=== PATIENT | male | born 1965 | race Asian ===

== ENCOUNTER 2016-09-24 15:20 | Emergency (ER) | payer MEDICARE, OTHER ==
[2016-09-24] MEDS ORDERED: ONDANSETRON 4 MG/2 ML VIAL IVP STA (16:08)
[2016-09-24] MEDS ORDERED: SODIUM CHLORIDE 0.9% 1,000 ML IV ONE ×2 (16:08→16:09)
[2016-09-24] MEDS ORDERED: ONDANSETRON 4 MG/2 ML VIAL ONE (16:14)
[2016-09-24] MEDS ORDERED: cefTRIAXone 1 GM in SODIUM CHLORIDE 0.9% MINIBAG 100 ML IV STA (17:58)
[2016-09-24] MEDS ORDERED: cefTRIAXone 1 GM VIAL ONE (18:01)
== END 2016-09-24 19:25 | disposition home or self-care (01) ==
DX: I95.9 Hypotension, unspecified (principal); E86.0 Dehydration; J06.9 Acute upper respiratory infection, unspecified; T83.511A Infection and inflammatory reaction due to indwelling urethral catheter, initial encounter; Y84.6 Urinary catheterization as the cause of abnormal reaction of the patient, or of later complication, without mention of misadventure at the time of the procedure; G82.20 Paraplegia, unspecified; S14.106S Unspecified injury at C6 level of cervical spinal cord, sequela; X58.XXXS Exposure to other specified factors, sequela

== ENCOUNTER 2016-10-07 12:17 | Inpatient (IN) | payer MEDICARE, OTHER ==
[2016-10-07] MEDS ORDERED: SODIUM CHLORIDE 0.9% 1,000 ML IV ONE ×2 (14:10→18:12)
[2016-10-07] MEDS ORDERED: ONDANSETRON 4 MG/2 ML VIAL IVP STA (14:56)
[2016-10-07] MEDS ORDERED: ONDANSETRON 4 MG/2 ML VIAL ONE (14:59)
[2016-10-07] MEDS ORDERED: IOPAMIDOL-300 100 ML VIAL IVP ONE (15:32)
[2016-10-07] MEDS ORDERED: MORPHINE 2 MG/ML SYRINGE IVP STA (16:21)
[2016-10-07] MEDS ORDERED: NITROGLYCERIN 2% PASTE TOP ONE (17:31)
[2016-10-07] MEDS ORDERED: MIDAZOLAM 2 MG/2 ML VIAL IVP ONE (18:00)
[2016-10-07] MEDS ORDERED: ESMOLOL 100 MG/10 ML VIAL IVP ONE (18:00)
[2016-10-07] MEDS ORDERED: PROPOFOL 200 MG/20 ML VIAL IVP ONE (18:00)
[2016-10-07] MEDS ORDERED: fentaNYL 100 MCG/2 ML VIAL IVP ONE (18:00)
[2016-10-07] MEDS ORDERED: hydrALAZINE INJ 20 MG/ML VIAL IVP ONE (18:00)
[2016-10-07] MEDS ORDERED: ePHEDrine 50 MG/ML AMP IVP ONE (18:00)
[2016-10-07] MEDS ORDERED: PROMETHAZINE 25 MG/1 ML VIAL ONE (19:05)
[2016-10-07] MEDS ORDERED: LACTATED RINGERS 1,000 ML IV ONE (19:10)
[2016-10-07] MEDS ORDERED: SODIUM CHLORIDE FLUSH 0.9% 10 ML SYRINGE IVP PRN (20:33)
[2016-10-07] MEDS ORDERED: PROCHLORPERAZINE 10 MG/2 ML VIAL IVP PRN (20:38)
[2016-10-07] MEDS ORDERED: ONDANSETRON 4 MG/2 ML VIAL IVP PRN (20:38)
[2016-10-07] MEDS ORDERED: LORazepam 2 MG/ML SYRINGE IVP PRN (20:38)
[2016-10-07] MEDS: LACTATED RINGERS 1,000 ML IV SCH (21:49)
[2016-10-07] MEDS: POTASSIUM CHLOR 10 MEQ/100 ML 100 ML IV SCH ×2 (21:49→22:45)
[2016-10-07] MEDS: FAMOTIDINE 20 MG/50 ML 50 ML IV SCH (21:49)
[2016-10-07] MEDS: SODIUM CHLORIDE FLUSH 0.9% 10 ML SYRINGE IVP SCH (21:52)
[2016-10-07] MEDS ORDERED: CIPROFLOXACIN 400 MG/200 ML 200 ML IV SCH (23:00)
[2016-10-08] MEDS: POTASSIUM CHLOR 10 MEQ/100 ML 100 ML IV SCH ×2 (00:13→01:19)
[2016-10-08] MEDS: ACETAMINOPHEN 1,000 MG/100 ML 100 ML IV PRN ×2 (00:15→11:27)
[2016-10-08] MEDS: SODIUM CHLORIDE FLUSH 0.9% 10 ML SYRINGE IVP SCH (06:01)
[2016-10-08] MEDS: FAMOTIDINE 20 MG/50 ML 50 ML IV SCH (08:54)
[2016-10-08] MEDS ORDERED: ENOXAPARIN 40 MG/0.4 ML SYRINGE SUBQ SCH (09:00)
[2016-10-08] MEDS: LACTATED RINGERS 1,000 ML IV SCH (09:33)
[2016-10-08] MEDS ORDERED: NITROGLYCERIN 2% PASTE TOP SCH (12:00)
== END 2016-10-08 14:42 | disposition home or self-care (01) | DRG 344 ==
DX: K56.2 Volvulus (principal); K56.60 Unspecified intestinal obstruction; S14.106S Unspecified injury at C6 level of cervical spinal cord, sequela; G82.50 Quadriplegia, unspecified; S14.105S Unspecified injury at C5 level of cervical spinal cord, sequela; G90.4 Autonomic dysreflexia; L98.9 Disorder of the skin and subcutaneous tissue, unspecified; Z96.0 Presence of urogenital implants; Z98.1 Arthrodesis status; Z87.440 Personal history of urinary (tract) infections

== ENCOUNTER 2017-06-11 10:55 | Emergency (ER) | payer MEDICARE, OTHER ==
[2017-06-11 11:35] LABS: BILIRUBIN,URINE NEGATIVE (NEGATIVE); PH,URINE 7.5 PH (5.0-7.5); UA w/ MICROSCOPIC CHARGE YES
[2017-06-11 11:40] LABS: UR CULTURE IF IND INDICATED; WBC,URINE >25 /HPF (0-3)
[2017-06-11] MEDS ORDERED: SODIUM CHLORIDE 0.9% 1,000 ML IV ONE (12:20)
--- NOTE | 2017-06-11 12:25 | ED Physician Documentation ---
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 He has an indwelling Cazares catheter and recurrent UTIs. Currently on nitrofurantoin prophylaxis. For the last 5 days has been feeling generally ill, achy, chills. No obvious source, no respiratory symptoms. No pain. This is similar to prior UTIs, culture, most recently from September of this year reviewed, showed E. coli, enterococcus, and Pseudomonas. All sensitive to fluoroquinolones which he says have been useful in for him in the past.) Review of Systems Ten Systems: 10 systems reviewed and negative Constitutional: reports: Fever, Chills, Myalgias, Fatigue, Sweats Respiratory: denies: Dyspnea, Cough GI: denies: Abdominal Pain, Vomiting, Diarrhea PD PAST MEDICAL HISTORY - Past Medical History Past Medical History: Yes Cardiovascular: None Respiratory: None Neuro: Other : Indwelling catheter Musculoskeletal: Quadriplegia - Past Surgical History Past Surgical History: Yes - Present Medications Home Medications: Ambulatory Orders Medication Instructions Recorded Confirmed Ciprofloxacin HCl [Cipro] 500 mg PO BID #20 tablet 06/11/17 Fexofenadine HCl [Huong Allergy] 60 mg PO DAILY 06/11/17 06/11/17 Nitrofurantoin Monohyd/M-Cryst 100 mg PO BID 06/11/17 06/11/17 [Macrobid 100 mg Capsule] - Allergies Allergies/Adverse Reactions: Allergies Allergy/AdvReac Type Severity Reaction Status Date / Time Sulfa (Sulfonamide Allergy Intermediate Respiratory Verified 10/07/16 12:36 Antibiotics) - Social History Does the pt smoke?: No Smoking Status: Never smoker Does the pt drink ETOH?: Yes Does the pt have substance abuse?: No - Family History Family history: reports: Non contributory - Immunizations Immunizations are current?: Yes - POLST Patient has POLST: Yes POLST Status: no life support PD ED PE NORMAL - Vitals Vital signs reviewed: Yes - General General: Alert and oriented X 3, No acute distress, Other (Appears mildly ill, in a wheelchair.) - HEENT HEENT: PERRL, EOMI - Neck Neck: Supple, no meningeal sign, No bony TTP - Cardiac Cardiac: RRR, No murmur - Respiratory Respiratory: No respiratory distress, Clear bilaterally - Abdomen Abdomen: Soft, Non tender - Extremities Extremities: No edema - Neuro Neuro: Alert and oriented X 3, Normal speech - Psych Psych: Normal mood, Normal affect Results - Vitals Vitals: Vital Signs - 24 hr 06/11/17 06/11/17 06/11/17 11:07 11:18 12:43 Temperature 37.5 C 37.4 C Heart Rate 78 82 Respiratory 19 15 Rate Blood Pressure 105/75 125/78 O2 Saturation 98 98 Oxygen O2 Source Room air - Labs Labs: Laboratory Tests 06/11/17 06/11/17 06/11/17 11:23 12:34 12:34 WBC 11.4 H RBC 3.87 L Hgb 11.7 L Hct 35.4 L MCV 91.7 MCH 30.4 MCHC 33.1 RDW 13.3 Plt Count 225 MPV 6.4 L Neut # 9.9 H Lymph # 0.6 L [place] # 0.8 Eos # 0.0 Baso # 0.0 Absolute Nucleated RBC 0.00 Nucleated RBC % 0.0 Sodium 133 L Potassium 3.6 Chloride 99 L Carbon Dioxide 23 Anion Gap 11.0 BUN 10 Creatinine 0.3 L Estimated GFR (MDRD) 314 Glucose 99 Lactic Acid Calcium 9.1 Urine Color YELLOW Urine Clarity SL. CLOUDY Urine pH 7.5 Ur Specific [place] 1.020 Urine Protein TRACE Urine Glucose (UA) NEGATIVE Urine Ketones 15 H Urine Occult Blood LARGE H Urine Nitrite POSITIVE H Urine Bilirubin NEGATIVE Urine Urobilinogen 0.2 (NORMAL) Ur Leukocyte Esterase SMALL H Urine RBC TNTC H Urine WBC >25 H Ur Squamous Epith Cells RARE Squamous Amorphous Sediment Few Urine Bacteria Moderate H Ur Microscopic Review INDICATED Urine Culture Comments INDICATED 06/11/17 12:34 WBC RBC Hgb Hct MCV MCH MCHC RDW Plt Count MPV Neut # Lymph # Owen # Eos # Baso # Absolute Nucleated RBC Nucleated RBC % Sodium Potassium Chloride Carbon Dioxide Anion Gap BUN Creatinine Estimated GFR (MDRD) Glucose Lactic Acid 0.7 Calcium Urine Color Urine Clarity Urine pH Ur Specific [place] Urine Protein Urine Glucose (UA) Urine Ketones Urine Occult Blood Urine Nitrite Urine Bilirubin Urine Urobilinogen Ur Leukocyte Esterase Urine RBC Urine WBC Ur Squamous Epith Cells Amorphous Sediment Urine Bacteria Ur Microscopic Review Urine Culture Comments PD MEDICAL DECISION MAKING - ED course ED course: 51-year-old gentleman with systemic symptoms from a UTI. His labs are reassuring with a normal lactate and only minimally elevated white blood cell count. He very much wanted to go home and he was administered IV fluids and Cipro here. Departure - Departure Disposition: 01 Home, Self Care Clinical Impression: Quadriplegia UTI (urinary tract infection) Qualifiers: Urinary tract infection type: catheter-associated UTI Indwelling urinary catheter type: indwelling urethral catheter Encounter type: initial encounter Qualified Code(s): T83.511A - Infection and inflammatory reaction due to indwelling urethral catheter, initial encounter; N39.0 - Urinary tract infection , site not specified; N39.0 - Urinary tract infection, site not specified Condition: Stable Record reviewed to determine appropriate education?: Yes Instructions: CAUTI Catheter Associated Prescriptions: Ciprofloxacin HCl [Cipro] 500 mg PO BID #20 tablet Comments: If your blood cultures become positive, we will call you immediately to return, you will need to return under the circumstances for potential hospitalization. Return immediately if worse. Follow-up with your doctor within the week.
[2017-06-11 12:44] LABS: BASOPHILS % (AUTO) 0.4 %; EOSINOPHILS % (AUTO) 0.2 %; HCT - HEMATOCRIT 35.4 % (42.0-52.0); HGB - HEMOGLOBIN 11.7 g/dL (14.0-18.0); LYMPHOCYTES # (AUTO) 0.6 10^3/uL (1.5-3.5); LYMPHOCYTES % (AUTO) 4.9 %; MEAN CORPUSCULAR HEMOGLOBIN 30.4 pg (27.0-31.0); MEAN CORPUSCULAR HGB CONC 33.1 g/dL (32.0-36.0); MEAN CORPUSCULAR VOLUME 91.7 fL (80.0-94.0); MEAN PLATELET VOLUME 6.4 fL (7.4-11.4); MONOCYTES # (AUTO) 0.8 10^3/uL (0.0-1.0); MONOCYTES % (AUTO) 7.2 %; NEUTROPHILS # (AUTO) 9.9 10^3/uL (1.5-6.6); NEUTROPHILS % (AUTO) 87.3 %; RED BLOOD COUNT 3.87 10^6/uL (4.70-6.10); RED CELL DISTRIBUTION WIDTH 13.3 % (12.0-15.0); UNCORRECTED WHITE BLOOD COUNT 11.4 x10^3/uL; WHITE BLOOD COUNT 11.4 x10^3/uL (4.8-10.8)
[2017-06-11] MEDS ORDERED: CIPROFLOXACIN 400 MG/200 ML 200 ML IV ONE ×2 (12:45→12:56)
[2017-06-11 12:54] LABS: CALCIUM 9.1 mg/dL (8.5-10.3); CREATININE 0.3 mg/dL (0.6-1.2); POTASSIUM 3.6 mmol/L (3.5-5.0)
[2017-06-11] MEDS ORDERED: CIPROFLOXACIN 400 MG/200 ML 200 ML IV SCH (13:00)
[2017-06-11 14:12] VITALS: BP 131/79
== END 2017-06-11 14:34 | disposition home or self-care (01) ==
LOC: ED 10:55
DX: T83.511A Infection and inflammatory reaction due to indwelling urethral catheter, initial encounter (principal); N39.0 Urinary tract infection, site not specified; G82.50 Quadriplegia, unspecified
CPT/HCPCS: 36415; 80048; 81001; 81003; 83605; 85025; 87040; 87086; 96365; 96375; 99283; 99284

== ENCOUNTER 2018-02-11 20:37 | Emergency (ER) | END 2018-02-11 23:45 | disposition home or self-care (01) | CPT/HCPCS: 36415; 80053; 81001; 83605; 83690; 85025; 87040; 87077; 87086; 87181; 96365; 99283; 99284; A9270 ==

== ENCOUNTER 2018-04-18 17:37 | Emergency (ER) | payer MEDICARE, OTHER ==
[2018-04-18 18:31] LABS: BILIRUBIN,URINE NEGATIVE (NEGATIVE); GLUCOSE, URINE (UA) NEGATIVE (NEGATIVE); KETONES,URINE (UA) NEGATIVE (NEGATIVE); LEUKOCYTE ESTERASE, URINE LARGE (NEGATIVE); NITRITE,URINE POSITIVE (NEGATIVE); OCCULT BLOOD,URINE LARGE (NEGATIVE); PH,URINE 8.5 PH (5.0-7.5); PROTEIN,URINE 100 mg/dL (NEGATIVE); UROBILINOGEN,URINE 0.2 (NORMAL) E.U./dL (NORMAL)
[2018-04-18 18:33] LABS: CLARITY,URINE CLOUDY (CLEAR)
[2018-04-18 18:47] LABS: BACTERIA,URINE Many /HPF (None Seen); SQUAMOUS EPITHELIAL CELL,UR NONE SEEN (<= Few)
--- NOTE | 2018-04-18 18:59 | ED Physician Documentation ---
PD HPI MALE - Stated complaint Stated Complaint: MALE - Chief complaint Chief Complaint: Abd Pain - History obtained from History obtained from: Patient - History of Present Illness Timing - onset: Today Timing - details: Abrupt onset Associated symptoms: Other (feeling of fever and chills and has had similar with UTIs in the past. Concerned as he gets septic/sick from infections quickly. 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 Musculoskeletal: Quadriplegia - Past Surgical History Past Surgical History: Yes - Present Medications Home Medications: Ambulatory Orders Medication Instructions Recorded Confirmed Fexofenadine HCl [Huong Allergy] 60 mg PO DAILY 06/11/17 06/11/17 Lactobacillus Acidophilus 1 each PO 02/11/18 [Probiotic Acidophilus] Cephalexin [Keflex] 500 mg PO TID #21 capsule 04/18/18 Ciprofloxacin HCl [Cipro] 500 mg PO BID #14 tablet 04/18/18 Ondansetron Odt [Zofran] 4 mg TL Q6H PRN #15 tablet 04/18/18 - Allergies Allergies/Adverse Reactions: Allergies Allergy/AdvReac Type Severity Reaction Status Date / Time Sulfa (Sulfonamide Allergy Intermediate Respiratory Verified 04/18/18 17:50 Antibiotics) - Social History Does the pt smoke?: No Smoking Status: Never smoker Does the pt drink ETOH?: Yes Does the pt have substance abuse?: No - Immunizations Immunizations are current?: Yes - POLST Patient has POLST: Yes POLST Status: no life support PD ED PE NORMAL - Vitals Vital signs reviewed: Yes - General General: Alert and oriented X 3, No acute distress, Well developed/nourished, Other (has chill and rigor here in ER. ) - HEENT HEENT: Pharynx benign - Neck Neck: Supple, no meningeal sign, No adenopathy - Cardiac Cardiac: RRR, No murmur - Respiratory Respiratory: Clear bilaterally - Abdomen Abdomen: Normal bowel sounds, Soft, Non distended - Male Male : Other (johnson in place; no redness at meatus. ) - Rectal Rectal: Other (pressure sores on buttocks, without signs of redness nor purulence. He has dressing on them. ) Results - Vitals Vitals: Vital Signs - 24 hr 04/18/18 04/18/18 04/18/18 17:45 18:30 19:23 Temperature 37.4 C 38.2 C H Heart Rate 93 84 Respiratory 22 22 Rate Blood Pressure 156/135 H 106/71 O2 Saturation 99 96 04/18/18 04/18/18 04/18/18 19:44 21:29 22:14 Temperature 37.3 C 36.9 C Heart Rate 90 88 84 Respiratory 33 H 15 16 Rate Blood Pressure 134/83 H 132/87 H 120/80 O2 Saturation 97 95 98 Oxygen O2 Source Room air - Labs Labs: Microbiology 04/18/18 18:15 Urine Culture - Preliminary Urine,Catheterized Escherichia Coli Laboratory Tests 04/18/18 04/18/18 04/18/18 18:15 19:16 19:16 WBC 9.3 RBC 4.26 L Hgb 12.4 L Hct 36.4 L MCV 85.4 MCH 29.1 MCHC 34.1 RDW 14.5 Plt Count 202 MPV 6.9 L Neut # (Auto) 7.8 H Lymph # (Auto) 0.7 L [place] # (Auto) 0.6 Eos # (Auto) 0.1 Baso # (Auto) 0.1 Absolute Nucleated RBC 0.00 Nucleated RBC % 0.0 Sodium 130 L Potassium 3.6 Chloride 101 Carbon Dioxide 21 Anion Gap 8.0 BUN 14 Creatinine 0.4 L Estimated GFR (MDRD) 224 Glucose 113 H Lactic Acid Calcium 9.2 Total Bilirubin 1.2 H AST 21 ALT 15 Alkaline Phosphatase 69 Total Protein 7.3 Albumin 3.6 Globulin 3.7 Albumin/Globulin Ratio 1.0 Lipase 46 Urine Color YELLOW Urine Clarity CLOUDY Urine pH 8.5 H Ur Specific [place] 1.010 Urine Protein 100 H Urine Glucose (UA) NEGATIVE Urine Ketones NEGATIVE Urine Occult Blood LARGE H Urine Nitrite POSITIVE H Urine Bilirubin NEGATIVE Urine Urobilinogen 0.2 (NORMAL) Ur Leukocyte Esterase LARGE H Urine RBC 11-25 H Urine WBC >25 H Ur Squamous Epith Cells NONE SEEN Urine Bacteria Many H Ur Microscopic Review INDICATED Urine Culture Comments INDICATED 04/18/18 19:16 WBC RBC Hgb Hct MCV MCH MCHC RDW Plt Count MPV Neut # (Auto) Lymph # (Auto) [place] # (Auto) Eos # (Auto) Baso # (Auto) Absolute Nucleated RBC Nucleated RBC % Sodium Potassium Chloride Carbon Dioxide Anion Gap BUN Creatinine Estimated GFR (MDRD) Glucose Lactic Acid 0.8 Calcium Total Bilirubin AST ALT Alkaline Phosphatase Total Protein Albumin Globulin Albumin/Globulin Ratio Lipase Urine Color Urine Clarity Urine pH Ur Specific [place] Urine Protein Urine Glucose (UA) Urine Ketones Urine Occult Blood Urine Nitrite Urine Bilirubin Urine Urobilinogen Ur Leukocyte Esterase Urine RBC Urine WBC Ur Squamous Epith Cells Urine Bacteria Ur Microscopic Review Urine Culture Comments PD MEDICAL DECISION MAKING - ED course Complexity details: reviewed results, re-evaluated patient (he is feeling better with IV fluids and meds. No blood test markers for early sepsis. He feels comfortable going home after IV abx. ), considered differential, d/w patient - Sepsis Event Vital Signs: Vital Signs - 24 hr 04/18/18 04/18/18 04/18/18 17:45 18:30 19:23 Temperature 37.4 C 38.2 C H Heart Rate 93 84 Respiratory 22 22 Rate Blood Pressure 156/135 H 106/71 O2 Saturation 99 96 04/18/18 04/18/18 04/18/18 19:44 21:29 22:14 Temperature 37.3 C 36.9 C Heart Rate 90 88 84 Respiratory 33 H 15 16 Rate Blood Pressure 134/83 H 132/87 H 120/80 O2 Saturation 97 95 98 Oxygen O2 Source Room air Departure - Departure Disposition: Home, Self Care Clinical Impression: UTI (urinary tract infection) due to urinary indwelling Johnson catheter Qualifiers: Indwelling urinary catheter type: indwelling urethral catheter Encounter type: initial encounter Qualified Code(s): T83.511A - Infection and inflammatory reaction due to indwelling urethral catheter, initial encounter Condition: Stable Record reviewed to determine appropriate education?: Yes Instructions: ED UTI Cystitis Male Prescriptions: Cephalexin [Keflex] 500 mg PO TID #21 capsule Ciprofloxacin HCl [Cipro] 500 mg PO BID #14 tablet Ondansetron Odt [Zofran] 4 mg TL Q6H PRN #15 tablet PRN Reason: Nausea / Vomiting Comments: Given that her last urinary infection had several microbes grow, I am prescribing double antibiotic coverage with Cipro and cephalexin initially pending the culture results in a couple of days. At that point we can modify the antibiotics to 1 or the other hopefully. Drink lots of fluids. Ondansetron if needed for nausea. Tylenol if needed for fevers. Return if worsening symptoms. Discharge Date/Time: 04/18/18 22:33
[2018-04-18 19:25] LABS: BASOPHILS # (AUTO) 0.1 10^3/uL (0.0-0.1); BASOPHILS % (AUTO) 1.1 %; EOSINOPHILS # (AUTO) 0.1 10^3/uL (0.0-0.7); EOSINOPHILS % (AUTO) 0.7 %; HGB - HEMOGLOBIN 12.4 g/dL (14.0-18.0); LYMPHOCYTES # (AUTO) 0.7 10^3/uL (1.5-3.5); MEAN CORPUSCULAR HEMOGLOBIN 29.1 pg (27.0-31.0); MEAN CORPUSCULAR HGB CONC 34.1 g/dL (32.0-36.0); MEAN CORPUSCULAR VOLUME 85.4 fL (80.0-94.0); MEAN PLATELET VOLUME 6.9 fL (7.4-11.4); MONOCYTES # (AUTO) 0.6 10^3/uL (0.0-1.0); MONOCYTES % (AUTO) 6.5 %; NEUTROPHILS # (AUTO) 7.8 10^3/uL (1.5-6.6); NEUTROPHILS % (AUTO) 83.7 %; PLT - PLATELET COUNT 202 10^3/uL (130-450); RED BLOOD COUNT 4.26 10^6/uL (4.70-6.10); RED CELL DISTRIBUTION WIDTH 14.5 % (12.0-15.0); WHITE BLOOD COUNT 9.3 x10^3/uL (4.8-10.8)
[2018-04-18] MEDS ORDERED: CIPROFLOXACIN 400 MG/200 ML 200 ML IV ONE (19:28)
[2018-04-18] MEDS ORDERED: KETOROLAC 60 MG/2 ML VIAL IVP STA (19:28)
[2018-04-18] MEDS ORDERED: SODIUM CHLORIDE 0.9% 1,000 ML IV ONE (19:28)
[2018-04-18] MEDS ORDERED: ACETAMINOPHEN 1,000 MG/100 ML 100 ML IV STA (19:28)
[2018-04-18] MEDS ORDERED: cefTRIAXone 1 GM in SODIUM CHLORIDE 0.9% MINIBAG 100 ML IV STA ×2 (19:30→20:37)
[2018-04-18 19:36] LABS: ALBUMIN 3.6 g/dL (3.2-5.5); BILIRUBIN,TOTAL 1.2 mg/dL (0.2-1.0); CALCIUM 9.2 mg/dL (8.5-10.3); CREATININE 0.4 mg/dL (0.6-1.2); TOTAL PROTEIN 7.3 g/dL (6.7-8.2)
[2018-04-18] MEDS ORDERED: ONDANSETRON ODT 4 MG TABLET TL STA (22:06)
[2018-04-18 22:17] VITALS: BP 120/80
--- NOTE | 2018-04-23 05:48 | ED Physician Documentation ---
ED Addendum - Addendum Addendum: 04/23/18 05:47 Chart reviewed for culture review. Urine sample cultured E. Coli, resistant to Cefazolin and cipro, sensitive to augmentin and thus 04/23/18 05:48 I recommend rx augmentin 875mg PO BID x 1 week, discontinue both keflex and cipro. Also sensitive to bactrim, but sulfa allergy noted on chart. There is also a second organism (gram negative growth >100,000) not yet cultured with sensitivities, and thus I also recommend patient not discard the keflex or cipro, as one of these might need to be added to the Augmentin depending on the sensitivities of the second organism.
== END 2018-04-18 22:33 | disposition home or self-care (01) ==
LOC: ED 17:37
DX: T83.511A Infection and inflammatory reaction due to indwelling urethral catheter, initial encounter (principal); G82.50 Quadriplegia, unspecified; Z96.0 Presence of urogenital implants
CPT/HCPCS: 36415; 80053; 81001; 83605; 83690; 85025; 87040; 87077; 87086; 87181; 96365; 96367; 96368; 96375; 99283; 99284; J0131; Q0162; 81003

== ENCOUNTER 2018-09-27 21:43 | Emergency (ER) | payer OTHER ==
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
[2018-09-27 22:31] LABS: BASOPHILS % (AUTO) 0.4 %; EOSINOPHILS # (AUTO) 0.2 10^3/uL (0.0-0.7); EOSINOPHILS % (AUTO) 2.2 %; HGB - HEMOGLOBIN 12.1 g/dL (14.0-18.0); LYMPHOCYTES # (AUTO) 0.4 10^3/uL (1.5-3.5); LYMPHOCYTES % (AUTO) 4.1 %; MEAN CORPUSCULAR HEMOGLOBIN 29.7 pg (27.0-31.0); MEAN CORPUSCULAR VOLUME 87.2 fL (80.0-94.0); MEAN PLATELET VOLUME 7.5 fL (7.4-11.4); MONOCYTES # (AUTO) 0.1 10^3/uL (0.0-1.0); MONOCYTES % (AUTO) 1.2 %; NEUTROPHILS # (AUTO) 8.5 10^3/uL (1.5-6.6); NEUTROPHILS % (AUTO) 92.1 %; PLT - PLATELET COUNT 206 10^3/uL (130-450); RED BLOOD COUNT 4.08 10^6/uL (4.70-6.10); RED CELL DISTRIBUTION WIDTH 13.9 % (12.0-15.0); WHITE BLOOD COUNT 9.2 x10^3/uL (4.8-10.8)
[2018-09-27 22:36] LABS: ALBUMIN 3.5 g/dL (3.2-5.5); BILIRUBIN,TOTAL 0.7 mg/dL (0.2-1.0); CALCIUM 9.3 mg/dL (8.5-10.3); CREATININE 0.7 mg/dL (0.6-1.2); TOTAL PROTEIN 6.9 g/dL (6.7-8.2)
[2018-09-27 22:54] LABS: BILIRUBIN,URINE NEGATIVE (NEGATIVE); GLUCOSE, URINE (UA) NEGATIVE (NEGATIVE); KETONES,URINE (UA) NEGATIVE (NEGATIVE); LEUKOCYTE ESTERASE, URINE LARGE (NEGATIVE); NITRITE,URINE POSITIVE (NEGATIVE); OCCULT BLOOD,URINE MODERATE (NEGATIVE); PROTEIN,URINE TRACE mg/dL (NEGATIVE); UROBILINOGEN,URINE 0.2 (NORMAL) E.U./dL (NORMAL)
[2018-09-27 22:58] LABS: CLARITY,URINE HAZY (CLEAR)
[2018-09-27 23:12] LABS: BACTERIA,URINE Few /HPF (None Seen); SQUAMOUS EPITHELIAL CELL,UR NONE SEEN (<= Few)
[2018-09-28] MEDS ORDERED: CEFEPIME 2 GM in SODIUM CHLORIDE 0.9% MINIBAG 100 ML IV STA (00:52)
[2018-09-28 01:13] VITALS: BP 108/72
== END 2018-09-28 01:57 | disposition home or self-care (01) ==
LOC: ED 21:43
DX: T83.511A Infection and inflammatory reaction due to indwelling urethral catheter, initial encounter (principal); G82.50 Quadriplegia, unspecified
CPT/HCPCS: 36415; 80053; 81001; 81003; 83605; 83690; 85025; 87040; 87077; 87086; 87181; 96365; 99283; 99285

== ENCOUNTER 2020-09-02 06:23 | Emergency (ER) | payer OTHER ==
[2020-09-02 07:05] LABS: BILIRUBIN,URINE NEGATIVE (NEGATIVE); GLUCOSE, URINE (UA) NEGATIVE (NEGATIVE); KETONES,URINE (UA) NEGATIVE (NEGATIVE); LEUKOCYTE ESTERASE, URINE MODERATE (NEGATIVE); NITRITE,URINE POSITIVE (NEGATIVE); OCCULT BLOOD,URINE MODERATE (NEGATIVE); PH,URINE 7.5 PH (5.0-7.5); PROTEIN,URINE NEGATIVE (NEGATIVE); UROBILINOGEN,URINE 0.2 (NORMAL) E.U./dL (NORMAL)
--- OUTSIDE RECORDS SUMMARY | 2020-09-02 07:10 | EXTERNAL MEDICAL SUMMARY RPT | Continuity of Care Document ---
:1965 Demographics Phone Unavailable Preferred Language Unknown Marital Status Unknown Adventist Affiliation Unknown Race Unknown Ethnic Group Unknown Author Organization [place] Address [address] [phone] Phone Support Name Relationship Address Phone RETI Unavailable Unavailable Unavailable Allergies date description facility HORSERADISH [facility] OXYCODONE HCL [facility] PENICILLINS [facility] SULFA (SULFONAMIDE ANTIBIOTICS) [facility] NO KNOWN ALLERGIES [facility] BENZONATATE [facility] CEPHALEXIN [facility] CIPROFLOXACIN HCL [facility] LISINOPRIL [facility] Sulfa (Sulfonamide Antibiotics) [facility] Social History date description facility [id number]
[2020-09-02 07:12] LABS: BACTERIA,URINE Moderate /HPF (None Seen); CLARITY,URINE CLEAR (CLEAR); SQUAMOUS EPITHELIAL CELL,UR RARE Squamous (<= Few)
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
[2020-09-02 07:39] LABS: BASOPHILS % (AUTO) 0.4 %; EOSINOPHILS # (AUTO) 0.2 10^3/uL (0.0-0.7); EOSINOPHILS % (AUTO) 1.9 %; HGB - HEMOGLOBIN 13.3 g/dL (14.0-18.0); LYMPHOCYTES # (AUTO) 0.5 10^3/uL (1.5-3.5); LYMPHOCYTES % (AUTO) 5.5 %; MEAN CORPUSCULAR HEMOGLOBIN 30.2 pg (27.0-31.0); MEAN CORPUSCULAR HGB CONC 33.3 g/dL (32.0-36.0); MEAN CORPUSCULAR VOLUME 90.9 fL (80.0-94.0); MEAN PLATELET VOLUME 9.2 fL (7.4-11.4); MONOCYTES # (AUTO) 0.6 10^3/uL (0.0-1.0); MONOCYTES % (AUTO) 6.6 %; NEUTROPHILS # (AUTO) 8.2 10^3/uL (1.5-6.6); NEUTROPHILS % (AUTO) 85.2 %; PLT - PLATELET COUNT 161 10^3/uL (130-450); RED CELL DISTRIBUTION WIDTH 12.9 % (12.0-15.0); WHITE BLOOD COUNT 9.6 x10^3/uL (4.8-10.8)
[2020-09-02 07:49] LABS: ALBUMIN 4.1 g/dL (3.2-5.5); ALBUMIN/GLOBULIN RATIO 1.4 (1.0-2.2); BILIRUBIN,TOTAL 1.2 mg/dL (0.2-1.0); CALCIUM 9.1 mg/dL (8.5-10.3); CREATININE 0.5 mg/dL (0.6-1.2); TOTAL PROTEIN 7.1 g/dL (6.7-8.2)
[2020-09-02] MEDS ORDERED: levoFLOXacin 250 MG TABLET PO STA (08:15)
[2020-09-02 08:47] VITALS: BP 84/51
== END 2020-09-02 08:48 | disposition home or self-care (01) ==
LOC: ED 06:23
DX: T83.511A Infection and inflammatory reaction due to indwelling urethral catheter, initial encounter (principal); T36.8X5A Adverse effect of other systemic antibiotics, initial encounter; G82.20 Paraplegia, unspecified; Z99.3 Dependence on wheelchair
CPT/HCPCS: 36415; 80053; 81001; 85025; 87077; 87086; 87181; 99283; 99284; A9270; 81003